=== PATIENT | female | born 1930 | race Hispanic/Latino ===

== ENCOUNTER 2017-01-14 12:38 | Emergency (ER) | payer MEDICARE, OTHER ==
[2017-01-14 13:30] VITALS: BP 184/71
[2017-01-14] MEDS ORDERED: TORADOL IM ONE (14:52)
--- NOTE | 2017-01-14 14:57 | Emergency Department Report ---
ED Neck Pain/Injury HPI - General Chief Complaint: Neck Pain/Injury Stated Complaint: NERVE PAIN/FACE/NECK AREA Time Seen by Provider: 01/14/17 14:40 Source: patient, family Mode of arrival: Stretcher Limitations: Other - History of Present Illness Initial Comments: Patient is a 86-year-old female here with complaint of right sided neck and facial pain. She has a known history of trigeminal neuralgia and feels that this is a flare of her try Demerol. She is having facial spasms and now neck spasms. She's had no traumatic injury. She says that she has had similar pain in the past. She takes Tegretol 300 mg twice a day. She will occasionally increased to 303 times a day when her neuralgia increases. She denies fevers chills nausea vomiting. -: Sudden Place: home Radiation: right shoulder Severity: moderate Quality: burning Improves With: none Worsens With: none - Related Data Home Medications Medication Instructions Recorded Confirmed Last Taken Atenolol [Tenormin] 25 mg PO DAILY 12/15/14 12/15/14 Unknown Baclofen 20 mg PO BID 12/15/14 12/15/14 Unknown Hydrochlorothiazide 12.5 mg PO DAILY 12/15/14 12/15/14 Unknown Levothyroxine [Synthroid] 12.5 mcg PO QAM 12/15/14 12/15/14 Unknown Memantine HCl [Namenda Xr] 28 mg PO DAILY 12/15/14 12/15/14 Unknown amLODIPine [Norvasc] 10 mg PO DAILY 12/15/14 12/15/14 Unknown carBAMazepine [TEGretol] 200 mg PO Q12HR 12/15/14 12/15/14 Unknown Previous Rx's Medication Instructions Recorded Last Taken Type Ibuprofen [Motrin 400 MG tab] 400 mg PO Q8H #9 tablet 01/14/17 Unknown Rx Allergies Allergy/AdvReac Type Severity Reaction Status Date / Time No Known Allergies Allergy Verified 01/14/17 13:58 ED Review of Systems ROS: Stated complaint: NERVE PAIN/FACE/NECK AREA Other details as noted in HPI Comment: All other systems reviewed and negative Constitutional: denies: chills, fever Eyes: denies: eye pain, eye discharge, vision change ENT: denies: ear pain, throat pain Respiratory: denies: cough, shortness of breath, wheezing Cardiovascular: denies: chest pain, palpitations Endocrine: no symptoms reported Gastrointestinal: denies: abdominal pain, nausea, diarrhea Genitourinary: denies: urgency, dysuria, discharge Musculoskeletal: denies: back pain, joint swelling, arthralgia Skin: denies: rash, lesions Neurological: denies: headache, weakness, paresthesias Psychiatric: denies: anxiety, depression Hematological/Lymphatic: denies: easy bleeding, easy bruising ED Past Medical Hx - Past Medical History Hx Hypertension: Yes Hx Congestive Heart Failure: No Hx Diabetes: No Hx Asthma: No Hx COPD: No Hx Dementia: Yes Additional medical history: high cholestrol/ trigeminal neuralgia - Surgical History Additional Surgical History: QUINN - Family History Family history: no significant - Social History Smoking Status: Never Smoker Substance Use Type: Alcohol - Medications Home Medications: Home Medications Medication Instructions Recorded Confirmed Last Taken Type Atenolol [Tenormin] 25 mg PO DAILY 12/15/14 12/15/14 Unknown History Baclofen 20 mg PO BID 12/15/14 12/15/14 Unknown History Hydrochlorothiazide 12.5 mg PO DAILY 12/15/14 12/15/14 Unknown History Levothyroxine [Synthroid] 12.5 mcg PO QAM 12/15/14 12/15/14 Unknown History Memantine HCl [Namenda Xr] 28 mg PO DAILY 12/15/14 12/15/14 Unknown History amLODIPine [Norvasc] 10 mg PO DAILY 12/15/14 12/15/14 Unknown History carBAMazepine [TEGretol] 200 mg PO Q12HR 12/15/14 12/15/14 Unknown History Ibuprofen [Motrin 400 MG tab] 400 mg PO Q8H #9 tablet 01/14/17 Unknown Rx ED Physical Exam - General Limitations: No Limitations, Other General appearance: alert, in no apparent distress - Head Head exam: Present: atraumatic, normocephalic - Eye Eye exam: Present: normal appearance, EOMI - ENT ENT exam: Present: normal exam, mucous membranes moist - Neck Neck exam: Present: normal inspection, tenderness, other (muscle spasm and right trapezius). Absent: lymphadenopathy - Respiratory Respiratory exam: Present: normal lung sounds bilaterally. Absent: respiratory distress - Cardiovascular Cardiovascular Exam: Present: regular rate, normal rhythm - Extremities Exam Extremities exam: Present: normal inspection, full ROM - Back Exam Back exam: Present: normal inspection, full ROM - Neurological Exam Neurological exam: Present: alert, altered, oriented X3, CN II-XII intact, motor sensory deficit - Psychiatric Psychiatric exam: Present: normal affect ED Course Vital Signs 01/14/17 13:26 Temperature 98.5 F Pulse Rate 61 Respiratory 18 Rate Blood Pressure 184/71 O2 Sat by Pulse 95 Oximetry ED Medical Decision Making - Medical Decision Making Patient with likely trigeminal neuralgia flare. She has some muscle spasm in her right trapezius. She appears well otherwise. She is afebrile and has no other complaints. She did not have any trauma to the neck and she has no midline tenderness. She has a normal neurological exam. My plan is to treat her with an NSAID for the muscle spasm in the neck and increase her Tegretol to 300 mg 3 times a day. I discussed adding a possible muscle relaxer but given the sedating effects of Tegretol the family and I agreed not to start a muscle relaxant at this point. We will put her on a very short course of NSAIDs and discharged. Portions of this chart were dictated with dictation software. There may be dictation errors contained within this note. Critical care attestation.: If time is entered above; I have spent that time in minutes in the direct care of this critically ill patient, excluding procedure time. ED Disposition Clinical Impression: Muscle spasm, Trigeminal neuralgia Disposition: DC-01 TO HOME OR SELFCARE Is pt being admited?: No Condition: Stable Instructions: Muscle Spasm (ED) Additional Instructions: Follow-up with your neurologist. Increase Tegretol to 300 mg 3 times a day Prescriptions: Ibuprofen [Motrin 400 MG tab] 400 mg PO Q8H #9 tablet Referrals: PRIMARY CARE, [Primary Care Provider] - 3-5 Days
== END 2017-01-14 15:40 | disposition home or self-care (01) ==
LOC: ED 12:38
DX: G50.0 Trigeminal neuralgia (principal); M62.838 Other muscle spasm; I10 Essential (primary) hypertension; E78.00 Pure hypercholesterolemia, unspecified; F03.90 Unspecified dementia, unspecified severity, without behavioral disturbance, psychotic disturbance, mood disturbance, and anxiety; Z87.440 Personal history of urinary (tract) infections
CPT/HCPCS: 96372; 99283; J1885

== ENCOUNTER 2017-08-28 19:15 | Inpatient (IN) | payer MEDICARE, OTHER ==
[2017-08-28 20:31] LABS: Basophils % (Auto) 0.3 % (0.0-1.8); Eosinophils # (Auto) 0.2 K/mm3 (0.0-0.4); Eosinophils % (Auto) 1.8 % (0.0-4.3); Hematocrit 36.3 % (30.3-42.9); Hemoglobin 12.3 gm/dl (10.1-14.3); Lymphocytes # (Auto) 1.3 K/mm3 (1.2-5.4); Lymphocytes % (Auto) 14.5 % (13.4-35.0); Mean Corpuscular HGB Conc 34 % (30-34); Mean Corpuscular Hemoglobin 30 pg (28-32); Mean Corpuscular Volume 89 fl (79-97); Monocytes # (Auto) 0.8 K/mm3 (0.0-0.8); Platelet Count 244 K/mm3 (140-440); Red Cell Distribution Width 14.1 % (13.2-15.2)
[2017-08-28 20:53] LABS: Calcium 8.6 mg/dL (8.4-10.2)
--- NOTE | 2017-08-28 20:57 | Emergency Department Report ---
HPI - General Chief Complaint: Syncope Time Seen by Provider: 08/28/17 20:37 - HPI HPI: Room 25 The patient is an 87-year-old female presented with a chief complaint of syncope. The patient has a history of dementia and family states 3 weeks ago the patient was started on Namenda. Family states the patient has been complaining of intermittent dizziness with standing for the past 3 weeks. 4 days ago the patient's Tegretol was increased by her neurologist secondary to worsening of her trigeminal neuralgia. This evening the patient's heard her in the bathroom and went to check on her and found her kneeling in front of the toilet bowl. The went to help patient up with the patient slumped over and fell to the ground and was unresponsive. EMS was called and the states the patient was eventually responsive in speaking with the paramedics. The patient does not recall being in the bathroom. When asked how she is feeling currently the patient states she feels a little "fuzzy." Patient denies pain of any type, shortness of breath or palpitations. Patient denies nausea or vomiting. Location: Mental state Duration: [See above] Quality: Unresponsive Severity: Moderate Modifying factors: [see above] Context: [see above] Mode of transportation: [not driving] ED Past Medical Hx - Past Medical History Previous Medical History?: Yes Hx Hypertension: Yes Hx Dementia: Yes Additional medical history: Trigeminal neuralgia, hypercholesterolemia - Surgical History Past Surgical History?: No - Family History Family history: no significant - Social History Smoking Status: Never Smoker Substance Use Type: None - Medications Home Medications: Home Medications Medication Instructions Recorded Confirmed Last Taken Type Atenolol [Tenormin] 25 mg PO DAILY 12/15/14 08/28/17 Unknown History Baclofen 20 mg PO BID 12/15/14 08/28/17 Unknown History Hydrochlorothiazide 12.5 mg PO DAILY 12/15/14 08/28/17 Unknown History Levothyroxine [Synthroid] 12.5 mcg PO QAM 12/15/14 08/28/17 Unknown History Memantine HCl [Namenda Xr] 28 mg PO DAILY 12/15/14 08/28/17 Unknown History amLODIPine [Norvasc] 10 mg PO DAILY 12/15/14 08/28/17 Unknown History carBAMazepine [TEGretol] 200 mg PO Q12HR 12/15/14 08/28/17 Unknown History Ibuprofen [Motrin 400 MG tab] 400 mg PO Q8H #9 tablet 01/14/17 08/28/17 Unknown Rx ED Review of Systems ROS: Stated complaint: SYNCOPE Other details as noted in HPI Constitutional: no symptoms reported Eyes: denies: eye pain ENT: denies: throat pain Respiratory: denies: shortness of breath Cardiovascular: denies: chest pain, palpitations Gastrointestinal: denies: abdominal pain Genitourinary: denies: dysuria Musculoskeletal: denies: back pain Neurological: other (syncope). denies: headache Physical Exam - Physical Exam Vital Signs: Vital Signs 08/28/17 19:22 Temperature 97.7 F Pulse Rate 60 Respiratory 16 Rate Blood Pressure 164/62 O2 Sat by Pulse 98 Oximetry Physical Exam: GENERAL: The patient is well-developed well-nourished female lying on stretcher not appearing to be in acute distress. [] HEENT: Normocephalic. Atraumatic. Extraocular motions are intact. Patient has moist mucous membranes. No nystagmus NECK: Supple. No meningitic signs are noted. There is no adenopathy noted. CHEST/LUNGS: Clear to auscultation. There is no respiratory distress noted. HEART/CARDIOVASCULAR: Regular. There is no tachycardia. There is no gallop rub or murmur. ABDOMEN: Abdomen is soft, nontender. Patient has normal bowel sounds. There is no abdominal distention. SKIN: There is no rash. There is no edema. There is no diaphoresis. NEURO: The patient is awake, alert, and oriented. The patient is cooperative. The patient has no focal neurologic deficits. The patient has normal speech. Cranial nerves II through XII grossly intact, no drift. Normal sensation throughout. Moves all extremities well. MUSCULOSKELETAL: There is no cervical axial tenderness. There is no evidence of acute injury. NIHSS= 0 LOC a. Alert= 0 Not alert but arousable to minor stimuli=1 Not alert requires repeated or strong stimuli to move= 2 Responds only reflex motor or unresponsive=3 b. asks month and age answers both correctly= 0 answers one correctly= 1 answers neither correctly= 2 Best Gaze normal= 0 abnormal in one or both but forced deviation or total paresis absent= 1 forced deviation or total gaze paresis= 2 Visual no visual loss= 0 partial hemianopia= 1 complete hemianopia= 2 bilateral hemianopia= 3 Facial Palsy normal= 0 minor paralysis= 1 partial paralysis= 2 complete paralysis= 3 Motor Arm no drift= 0 drift before 10 secs but doesnt hit bed= 1 some effort against gravity= 2 no effort against gravity= 3 no movement= 4 Motor leg no drift= 0 drift before 5 secs but doesnt hit bed= 1 drifts to bed before 5 secs= 2 no effort against gravity= 3 no movement= 4 Limb ataxia absent=0 present in one limb= 1 present in two limbs= 2 Sensory normal= 0 mild sensory loss= 1 severe (unaware of being touched)= 2 Best language mild/some loss of fluency= 1 severe= 2 mute= 3 Dysarthria normal= 0 slurs some words= 1 severe/unintelligible= 2 Extinction and Inattention no abnormality= 0 visual, tactile, auditory or personal inattention= 1 profound (doesnt recognize own hand or orients to only one side= 2 ED Course Vital Signs 08/28/17 19:22 Temperature 97.7 F Pulse Rate 60 Respiratory 16 Rate Blood Pressure 164/62 O2 Sat by Pulse 98 Oximetry ED Medical Decision Making - Lab Data Result diagrams: 08/28/17 20:16 08/28/17 20:16 Laboratory Tests 08/28/17 08/28/17 08/28/17 20:16 20:16 20:59 WBC 8.6 RBC 4.10 Hgb 12.3 Hct 36.3 MCV 89 MCH 30 MCHC 34 RDW 14.1 Plt Count 244 Lymph % (Auto) 14.5 [place] % (Auto) 9.0 H Eos % (Auto) 1.8 Baso % (Auto) 0.3 Lymph # 1.3 [place] # 0.8 Eos # 0.2 Baso # 0.0 Seg Neutrophils % 74.4 H Seg Neutrophils # 6.4 Sodium 140 Potassium 4.0 Chloride 100.6 Carbon Dioxide 21 L Anion Gap 22 BUN 22 H Creatinine 1.6 H Estimated GFR 30 BUN/Creatinine Ratio 14 Glucose 146 H Calcium 8.6 Total Bilirubin 0.20 AST 19 ALT 12 Alkaline Phosphatase 109 Total Creatine Kinase 101 CK-MB (CK-2) 2.4 CK-MB (CK-2) Rel Index 2.3 Troponin T 0.012 Total Protein 6.6 Albumin 4.0 Albumin/Globulin Ratio 1.5 Carbamazepine 03/09/18 20:59 WBC RBC Hgb Hct MCV MCH MCHC RDW Plt Count Lymph % (Auto) [place] % (Auto) Eos % (Auto) Baso % (Auto) Lymph # [place] # Eos # Baso # Seg Neutrophils % Seg Neutrophils # Sodium Potassium Chloride Carbon Dioxide Anion Gap BUN Creatinine Estimated GFR BUN/Creatinine Ratio Glucose Calcium Total Bilirubin AST ALT Alkaline Phosphatase Total Creatine Kinase CK-MB (CK-2) CK-MB (CK-2) Rel Index Troponin T Total Protein Albumin Albumin/Globulin Ratio Carbamazepine 12.9 H - EKG Data -: EKG Interpreted by Me EKG shows normal: sinus rhythm Rate: normal - EKG Data When compared to previous EKG there are: previous EKG unavailable Interpretation: nonspecific ST-T wave susan (flat andT wave in aVL. Biphasic T- wave in V2) - Radiology Data Radiology results: report reviewed (CT head) FINAL REPORT EXAM: CT HEAD/BRAIN WO CON HISTORY: syncope TECHNIQUE: CT head without contrast PRIORS: None. FINDINGS: No acute intra-axial or extra-axial hemorrhage is identified. There is no evidence of midline shift or mass effect. There is generalized prominence of ventricles and sulci consistent with generalized atrophy. Hassan-white matter differentiation is intact. No acute parenchymal abnormalities seen. There are patchy and confluent hypodensities within the supratentorial white matter. Bony calvarium is grossly intact. There is mucosal thickening within the sphenoid sinus IMPRESSION: Chronic small vessel white matter ischemic change generalized atrophy Evidence for chronic sinusitis Transcribed By: MUSHTAQ Dictated By: NHUNG HUDSON MD Electronically Authenticated By: NHUNG HUDSON MD Signed Date/Time: 08/28/172135 DD/ 35 TD/TT: 08/28/172135 - Differential Diagnosis syncope, dysrhythmia, ICH, vasovagal syncope Critical care attestation.: If time is entered above; I have spent that time in minutes in the direct care of this critically ill patient, excluding procedure time. ED Disposition Clinical Impression: Syncope, Acute renal insufficiency Disposition: OP ADMIT IP TO THIS HOSP Is pt being admited?: Yes Does the pt Need Aspirin: No Condition: Fair Instructions: Syncope (ED) Referrals: SELENA HARPER MD [Primary Care Provider] - 3-5 Days Time of Disposition: 22:03 (hospitalist paged (Dr. Madrigal))
[2017-08-28 21:34] LABS: Creatine Kinase MB 2.4 ng/mL (0.0-4.0)
--- NOTE | 2017-08-28 21:40 | Cat Scan Report ---
FINAL REPORT EXAM: CT HEAD/BRAIN WO CON HISTORY: syncope TECHNIQUE: CT head without contrast PRIORS: None. FINDINGS: No acute intra-axial or extra-axial hemorrhage is identified. There is no evidence of midline shift or mass effect. There is generalized prominence of ventricles and sulci consistent with generalized atrophy. Hassan-white matter differentiation is intact. No acute parenchymal abnormalities seen. There are patchy and confluent hypodensities within the supratentorial white matter. Bony calvarium is grossly intact. There is mucosal thickening within the sphenoid sinus IMPRESSION: Chronic small vessel white matter ischemic change generalized atrophy Evidence for chronic sinusitis
--- NOTE | 2017-08-28 23:16 | History and Physical Report ---
History of Present Illness Date of examination: 08/28/17 Date of admission: 08/28/17 22:13 Chief complaint: Passed out History of present illness: I have seen and evaluated the patient. When asked the patient "why you are here ?" Patient said she is feeling perfectly fine and to know why she presented to the hospital. Family member was not in the room. Patient has severe dementia. History is obtained from ED doctor. The patient is an 87-year-old female presented with a chief complaint of syncope. The patient has a history of dementia and family states 3 weeks ago the patient was started on Namenda. Family states the patient has been complaining of intermittent dizziness with standing for the past 3 weeks. 4 days ago the patient's Tegretol was increased by her neurologist secondary to worsening of her trigeminal neuralgia. This evening the patient's heard her in the bathroom and went to check on her and found her kneeling in front of the toilet bowl. The went to help patient up with the patient slumped over and fell to the ground and was unresponsive. EMS was called and the states the patient was eventually responsive in speaking with the paramedics. The patient does not recall being in the bathroom. When asked how she is feeling currently the patient states she feels a little "fuzzy." Patient denies pain of any type, shortness of breath or palpitations. Patient denies nausea or vomiting. Review of system couldn't be obtained because of severe dementia. Past History Past Medical History: hypertension, other (Dmentia) Past Surgical History: No surgical history Social history: full code. denies: smoking, alcohol abuse, prescription drug abuse, IV drug use Family history: no significant family history Medications and Allergies Allergies Allergy/AdvReac Type Severity Reaction Status Date / Time No Known Allergies Allergy Verified 01/14/17 13:58 Home Medications Medication Instructions Recorded Confirmed Last Taken Type Atenolol [Tenormin] 25 mg PO DAILY 12/15/14 08/28/17 Unknown History Baclofen 20 mg PO BID 12/15/14 08/28/17 Unknown History Hydrochlorothiazide 12.5 mg PO DAILY 12/15/14 08/28/17 Unknown History Levothyroxine [Synthroid] 12.5 mcg PO QAM 12/15/14 08/28/17 Unknown History Memantine HCl [Namenda Xr] 28 mg PO DAILY 12/15/14 08/28/17 Unknown History amLODIPine [Norvasc] 10 mg PO DAILY 12/15/14 08/28/17 Unknown History carBAMazepine [TEGretol] 200 mg PO Q12HR 12/15/14 08/28/17 Unknown History Ibuprofen [Motrin 400 MG tab] 400 mg PO Q8H #9 tablet 01/14/17 08/28/17 Unknown Rx Review of Systems ROS unobtainable: due to mental status (Patient has severe dementia, no family member in the room) Exam - Physical Exam Narrative exam: Not in cardiopulmonary distress. The patient appeared well nourished and normally developed. Vital signs as documented. Head exam is unremarkable. No scleral icterus . Neck is without jugular venous distension, thyromegaly, or carotid bruits. Lungs are clear to auscultation. Cardiac exam reveals regular rate and Rhythm. First and second heart sounds normal. No murmurs, rubs or gallops. Abdominal exam reveals normal bowel sounds, no masses, no organomegaly and no aortic enlargement. Extremities are nonedematous and both femoral and pedal pulses are normal. 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 - Constitutional Vitals: Temp Pulse Resp BP Pulse Ox 97.6 F 66 20 176/45 94 08/28/17 23:02 08/28/17 23:15 08/28/17 23:02 08/28/17 23:02 08/28/17 23:02 Results - Labs CBC & Chem 7: 08/28/17 20:16 08/28/17 20:16 Labs: Laboratory Last Values WBC 8.6 K/mm3 (4.5-11.0) 08/28/17 20:16 RBC 4.10 M/mm3 (3.65-5.03) 08/28/17 20:16 Hgb 12.3 gm/dl (10.1-14.3) 08/28/17 20:16 Hct 36.3 % (30.3-42.9) 08/28/17 20:16 MCV 89 fl (79-97) 08/28/17 20:16 MCH 30 pg (28-32) 08/28/17 20:16 MCHC 34 % (30-34) 08/28/17 20:16 RDW 14.1 % (13.2-15.2) 08/28/17 20:16 Plt Count 244 K/mm3 (140-440) 08/28/17 20:16 Lymph % (Auto) 14.5 % (13.4-35.0) 08/28/17 20:16 Cache % (Auto) 9.0 % (0.0-7.3) H 08/28/17 20:16 Eos % (Auto) 1.8 % (0.0-4.3) 08/28/17 20:16 Baso % (Auto) 0.3 % (0.0-1.8) 08/28/17 20:16 Lymph # 1.3 K/mm3 (1.2-5.4) 08/28/17 20:16 Cache # 0.8 K/mm3 (0.0-0.8) 08/28/17 20:16 Eos # 0.2 K/mm3 (0.0-0.4) 08/28/17 20:16 Baso # 0.0 K/mm3 (0.0-0.1) 08/28/17 20:16 Seg Neutrophils % 74.4 % (40.0-70.0) H 08/28/17 20:16 Seg Neutrophils # 6.4 K/mm3 (1.8-7.7) 08/28/17 20:16 Sodium 140 mmol/L (137-145) 08/28/17 20:16 Potassium 4.0 mmol/L (3.6-5.0) 08/28/17 20:16 Chloride 100.6 mmol/L (98-107) 08/28/17 20:16 Carbon Dioxide 21 mmol/L (22-30) L 08/28/17 20:16 Anion Gap 22 mmol/L 08/28/17 20:16 BUN 22 mg/dL (7-17) H 08/28/17 20:16 Creatinine 1.6 mg/dL (0.7-1.2) H 08/28/17 20:16 Estimated GFR 30 ml/min 08/28/17 20:16 BUN/Creatinine Ratio 14 % 08/28/17 20:16 Glucose 146 mg/dL (65-100) H 08/28/17 20:16 Calcium 8.6 mg/dL (8.4-10.2) 08/28/17 20:16 Total Bilirubin 0.20 mg/dL (0.1-1.2) 08/28/17 20:16 AST 19 units/L (5-40) 08/28/17 20:16 ALT 12 units/L (7-56) 08/28/17 20:16 Alkaline Phosphatase 109 units/L (35-129) 08/28/17 20:16 Total Creatine Kinase 101 units/L (30-135) 08/28/17 20:59 CK-MB (CK-2) 2.4 ng/mL (0.0-4.0) 08/28/17 20:59 CK-MB (CK-2) Rel Index 2.3 (0-4) 08/28/17 20:59 Troponin T 0.012 ng/mL (0.00-0.029) 08/28/17 20:59 Total Protein 6.6 g/dL (6.3-8.2) 08/28/17 20:16 Albumin 4.0 g/dL (3.9-5) 08/28/17 20:16 Albumin/Globulin Ratio 1.5 % 08/28/17 20:16 Carbamazepine 12.9 ug/mL (4-12) H 08/28/17 20:59 Assessment and Plan Assessment and plan: Syncope/ Autonomic dysfunction/ Brief loss of consciousness - Stroke work up, neurology consult - Headed dementia and trigeminal neuralgia medications Dementia - Supportive care Trigeminal neuralgia - Currently have any pain Hypertension - Continue home medications Acute renal failure - We'll give her IV fluids DVT prophylaxis Disposition - Admit to telemetry floor. Advance Directives: Yes VTE prophylaxis?: Chemical Plan of care discussed with patient/family: Yes
[2017-08-28] MEDS ORDERED: TYLENOL PO PRN (23:17)
[2017-08-28] MEDS ORDERED: SODIUM CHLORIDE FLUSH SYRINGE 10 ML IV PRN (23:17)
[2017-08-28] MEDS ORDERED: PHENERGAN PR PRN (23:17)
[2017-08-28] MEDS ORDERED: REGLAN PO PRN (23:17)
[2017-08-28] MEDS ORDERED: ZOFRAN IV PRN (23:17)
[2017-08-28] MEDS ORDERED: MILK OF MAGNESIA PO PRN (23:17)
[2017-08-29 02:41] LABS: Bilirubin,Urine NEG (Negative); Blood,Urine NEG (Negative); Color,Urine Straw (Yellow); Urobilinogen,Urine < 2.0 mg/dL (<2.0); WBC,Urine < 1.0 /HPF (0.0-6.0)
[2017-08-29] MEDS: NACL 0.9% 1000 ML 1,000 ML IV SCH ×2 (03:58→21:28)
[2017-08-29] MEDS: SYNTHROID PO SCH (05:08)
[2017-08-29 06:54] LABS: Chol/HDL Ratio 3.16 %
--- NOTE | 2017-08-29 09:03 | Progress Note ---
Assessment and Plan Assessment and plan: 87-year-old female presented with a chief complaint of syncope. She takes Tegretol for trigeminal neuralgia, the dose was recently increased. She has dementia has a recollection of what happened. She was found by her slumped over and unresponsive in the bathroom. The patient has no complaints of her own Syncope/ Autonomic dysfunction/ Brief loss of consciousness - Stroke work up, neurology consult carbamezapine toxicity -currently on hold, will be dc on a lower dose Dementia - Supportive care Trigeminal neuralgia - Currently asymptomatic Hypertensive urgency - hold diuretics, optimize meds Acute renal failure/vasmotor nephropathy - continue IVF, diuretics on hold DVT prophylaxis Disposition - Admit to telemetry floor. History Interval history: Review of systems Constitutional: No fevers, no malaise, no joint pains CVS: No chest pain, no orthopnea, no dyspnea on exertion, no pedal edema GI: No abdominal pain, no diarrhea, no vomiting, no constipation Respiratory: No shortness of breath, no wheezing, no coughing Hospitalist Physical - Physical exam Narrative exam: General.: Appears well, no distress, nontoxic HEENT: Moist mucous membranes, extraocular muscles intact, no lymphadenopathy Neck: supple Cardiac: S1-S2 heard Lungs: clear to auscultation bilaterally Abdomen: soft , nontender, nondistended, bowel sounds positive Extremities: no edema clubbing or cyanosis Skin: no rash or lesions Neurologic: no gross focal deficits, pleasantly demented Psych: Cooperative, pleasantly demented - Constitutional Vitals: Temp Pulse Resp BP Pulse Ox 98.2 F 62 20 153/52 95 08/29/17 04:17 08/29/17 08:59 08/29/17 04:12 08/29/17 04:12 08/29/17 04:12 Results - Labs CBC & Chem 7: 08/28/17 20:16 08/28/17 20:16 Labs: Laboratory Last Values WBC 8.6 K/mm3 (4.5-11.0) 08/28/17 20:16 RBC 4.10 M/mm3 (3.65-5.03) 08/28/17 20:16 Hgb 12.3 gm/dl (10.1-14.3) 08/28/17 20:16 Hct 36.3 % (30.3-42.9) 08/28/17 20:16 MCV 89 fl (79-97) 08/28/17 20:16 MCH 30 pg (28-32) 08/28/17 20:16 MCHC 34 % (30-34) 08/28/17 20:16 RDW 14.1 % (13.2-15.2) 08/28/17 20:16 Plt Count 244 K/mm3 (140-440) 08/28/17 20:16 Lymph % (Auto) 14.5 % (13.4-35.0) 08/28/17 20:16 Elbert % (Auto) 9.0 % (0.0-7.3) H 08/28/17 20:16 Eos % (Auto) 1.8 % (0.0-4.3) 08/28/17 20:16 Baso % (Auto) 0.3 % (0.0-1.8) 08/28/17 20:16 Lymph # 1.3 K/mm3 (1.2-5.4) 08/28/17 20:16 Elbert # 0.8 K/mm3 (0.0-0.8) 08/28/17 20:16 Eos # 0.2 K/mm3 (0.0-0.4) 08/28/17 20:16 Baso # 0.0 K/mm3 (0.0-0.1) 08/28/17 20:16 Seg Neutrophils % 74.4 % (40.0-70.0) H 08/28/17 20:16 Seg Neutrophils # 6.4 K/mm3 (1.8-7.7) 08/28/17 20:16 Sodium 140 mmol/L (137-145) 08/28/17 20:16 Potassium 4.0 mmol/L (3.6-5.0) 08/28/17 20:16 Chloride 100.6 mmol/L (98-107) 08/28/17 20:16 Carbon Dioxide 21 mmol/L (22-30) L 08/28/17 20:16 Anion Gap 22 mmol/L 08/28/17 20:16 BUN 22 mg/dL (7-17) H 08/28/17 20:16 Creatinine 1.6 mg/dL (0.7-1.2) H 08/28/17 20:16 Estimated GFR 30 ml/min 08/28/17 20:16 BUN/Creatinine Ratio 14 % 08/28/17 20:16 Glucose 146 mg/dL (65-100) H 08/28/17 20:16 Calcium 8.6 mg/dL (8.4-10.2) 08/28/17 20:16 Total Bilirubin 0.20 mg/dL (0.1-1.2) 08/28/17 20:16 AST 19 units/L (5-40) 08/28/17 20:16 ALT 12 units/L (7-56) 08/28/17 20:16 Alkaline Phosphatase 109 units/L (35-129) 08/28/17 20:16 Total Creatine Kinase 101 units/L (30-135) 08/28/17 20:59 CK-MB (CK-2) 2.4 ng/mL (0.0-4.0) 08/28/17 20:59 CK-MB (CK-2) Rel Index 2.3 (0-4) 08/28/17 20:59 Troponin T 0.012 ng/mL (0.00-0.029) 08/28/17 20:59 Total Protein 6.6 g/dL (6.3-8.2) 08/28/17 20:16 Albumin 4.0 g/dL (3.9-5) 08/28/17 20:16 Albumin/Globulin Ratio 1.5 % 08/28/17 20:16 Triglycerides 120 mg/dL (2-149) 08/29/17 05:58 Cholesterol 158 mg/dL (50-199) 08/29/17 05:58 LDL Cholesterol Direct 91 mg/dL (50-130) 08/29/17 05:58 HDL Cholesterol 50 mg/dL (40-59) 08/29/17 05:58 Cholesterol/HDL Ratio 3.16 % 08/29/17 05:58 Urine Color Straw (Yellow) 08/29/17 02:27 Urine Turbidity Clear (Clear) 08/29/17 02:27 Urine pH 6.0 (5.0-7.0) 08/29/17 02:27 Ur Specific [place] 1.008 (1.003-1.030) 08/29/17 02:27 Urine Protein 30 mg/dl mg/dL (Negative) 08/29/17 02:27 Urine Glucose (UA) Neg mg/dL (Negative) 08/29/17 02:27 Urine Ketones Neg mg/dL (Negative) 08/29/17 02:27 Urine Blood Neg (Negative) 08/29/17 02:27 Urine Nitrite Neg (Negative) 08/29/17 02:27 Urine Bilirubin Neg (Negative) 08/29/17 02:27 Urine Urobilinogen < 2.0 mg/dL (<2.0) 08/29/17 02:27 Ur Leukocyte Esterase Neg (Negative) 08/29/17 02:27 Urine WBC (Auto) < 1.0 /HPF (0.0-6.0) 08/29/17 02:27 Urine RBC (Auto) 1.0 /HPF (0.0-6.0) 08/29/17 02:27 U Epithel Cells (Auto) < 1.0 /HPF (0-13.0) 08/29/17 02:27 Carbamazepine 12.9 ug/mL (4-12) H 08/28/17 20:59
--- NOTE | 2017-08-29 09:58 | Magnetic Resonance Report ---
MRI OF THE BRAIN WITHOUT CONTRAST: HISTORY: Stroke PROCEDURE: Multiplanar, multisequence MR imaging of the brain without IV contrast was performed. FINDINGS: Compared to the CT head performed 08/28/17. Advanced diffuse volume loss and mild chronic periventricular white matter changes are identified. These findings are likely appropriate for this persons age. Otherwise, the brain parenchyma demonstrates normal signal on all sequences. No evidence for acute ischemia, hemorrhage or mass. No chronic infarct or extra-axial fluid collection. The midline structures are central. The basal cisterns are patent. Normal ventricular size. The orbital cavities and sella turcica demonstrate no abnormality. The visualized paranasal sinuses and mastoid air cells are well aerated. IMPRESSION: Advanced volume loss and mild chronic white matter changes. No acute intracranial process appreciated.
[2017-08-29] MEDS ORDERED: SYNTHROID PO SCH (10:00)
[2017-08-29] MEDS ORDERED: DULCOLAX PR PRN (10:00)
[2017-08-29] MEDS ORDERED: TENORMIN PO SCH (10:00)
[2017-08-29] MEDS ORDERED: NORVASC PO SCH (10:00)
[2017-08-29] MEDS ORDERED: APRESOLINE IV PRN (10:30)
[2017-08-29] MEDS: PROCARDIA XL PO SCH (13:32)
[2017-08-29] MEDS: COLACE PO SCH ×2 (13:32→21:28)
[2017-08-29] MEDS: ASPIRIN PO SCH (13:32)
[2017-08-29] MEDS: HEPARIN SUB-Q SCH ×2 (13:33→21:28)
--- NOTE | 2017-08-29 14:33 | Consultation ---
History of Present Illness Consult date: 08/29/17 History of present illness: see my dictyated note OK to restart tegretol do not recommend more namenda she has positive history of small stroke s seen on MRI Past History Past Medical History: hypertension, other (Dmentia) Past Surgical History: No surgical history Social history: full code. denies: smoking, alcohol abuse, prescription drug abuse, IV drug use Family history: no significant family history Medications and Allergies Allergies Allergy/AdvReac Type Severity Reaction Status Date / Time No Known Allergies Allergy Verified 01/14/17 13:58 Home Medications Medication Instructions Recorded Confirmed Last Taken Type Atenolol [Tenormin] 25 mg PO DAILY 12/15/14 08/28/17 Unknown History Baclofen 20 mg PO BID 12/15/14 08/28/17 Unknown History Hydrochlorothiazide 12.5 mg PO DAILY 12/15/14 08/28/17 Unknown History Levothyroxine [Synthroid] 12.5 mcg PO QAM 12/15/14 08/28/17 Unknown History Memantine HCl [Namenda Xr] 28 mg PO DAILY 12/15/14 08/28/17 Unknown History amLODIPine [Norvasc] 10 mg PO DAILY 12/15/14 08/28/17 Unknown History carBAMazepine [TEGretol] 200 mg PO Q12HR 12/15/14 08/28/17 Unknown History Ibuprofen [Motrin 400 MG tab] 400 mg PO Q8H #9 tablet 01/14/17 08/28/17 Unknown Rx Active Meds: Active Medications Acetaminophen (Tylenol) 650 mg PO Q4H PRN PRN Reason: Pain, Mild (1-3) Aspirin (Aspirin) 325 mg PO QDAY [facility] Last Admin: 08/29/17 13:32 Dose: 325 mg Bisacodyl (Dulcolax) 10 mg ID QDAY PRN PRN Reason: Constipation Docusate Sodium (Colace) 100 mg PO BID [facility] Last Admin: 08/29/17 13:32 Dose: 100 mg Heparin Sodium (Porcine) (Heparin) 5,000 unit SUB-Q Q12HR [facility] Last Admin: 08/29/17 13:33 Dose: 5,000 unit Hydralazine HCl (Apresoline) 10 mg IV Q4H PRN PRN Reason: BP >160/100 Sodium Chloride (Nacl 0.9% 1000 Ml) 1,000 mls @ 100 mls/hr IV DIRECT [facility] Last Admin: 08/29/17 03:58 Dose: 100 mls/hr Levothyroxine Sodium (Synthroid) 12.5 mcg PO DAILY@0600 [facility] Last Admin: 08/29/17 05:08 Dose: 12.5 mcg Magnesium Hydroxide (Milk Of Magnesia) 30 ml PO Q4H PRN PRN Reason: Constipation Nifedipine (Procardia Xl) 60 mg PO QDAY [facility] Last Admin: 08/29/17 13:32 Dose: 60 mg Ondansetron HCl (Zofran) 4 mg IV Q8H PRN PRN Reason: N/V unrelieved by Reglan Promethazine HCl (Phenergan) 25 mg ID Q6H PRN PRN Reason: Nausea And Vomiting Sodium Chloride (Sodium Chloride Flush Syringe 10 Ml) 10 ml IV PRN PRN PRN Reason: LINE FLUSH Physical Examination - Vital Signs Vital Signs: Vital Signs Temp Pulse Resp BP Pulse Ox 97.7 F 60 16 164/62 98 08/28/17 19:22 08/28/17 19:22 08/28/17 19:22 08/28/17 19:22 08/28/17 19:22 Results - Laboratory Findings CBC and BMP: 08/28/17 20:16 08/28/17 20:16 Abnormal Lab Findings: Abnormal Labs 08/28/17 08/28/17 08/28/17 20:16 20:16 20:59 [place] % (Auto) 9.0 H Seg Neutrophils % 74.4 H Carbon Dioxide 21 L BUN 22 H Creatinine 1.6 H Glucose 146 H Carbamazepine 12.9 H
[2017-08-29 14:51] LABS: Calcium 8.5 mg/dL (8.4-10.2)
--- NOTE | 2017-08-29 23:47 | Consultation ---
HISTORY OF PRESENT ILLNESS: This is an 87-year-old female that presents to [facility] because of a presyncopal episode. I remember her from last week. Her was hospitalized at that point for syncopal episode. She comes at this point because of complications, likely arising from the interaction of the Tegretol and Namenda. She had been put on Namenda at 20 mg a day and was not tolerating it very well. It made her nauseated, very ataxic and felt off balance. Subsequently, she also had a Tegretol level 12.6. She had previously had very severe trigeminal neuralgia. ____ had increased her dose of Tegretol to 200 mg 3 times a day and she was tolerating it well initially up until the time the Namenda started, then she became much worse. I have reviewed her MRI scan of the brain. It shows areas of white matter disease suggestive of TIA, small vessel disease. She has symmetrical toddler nanny. Normal speech. She is confused. Memory is poor. Cranial nerves are otherwise entirely intact. No focal motor weakness is otherwise noted. IMPRESSION: Likely combination of issues, transient ischemic attacks, small vessel disease, mini strokes are likely, as well as trigeminal neuralgia and suspect a combination of issues. Largely the high dose of Namenda is contributing to her nausea, lethargy and being very off balance. I recommend restarting the Tegretol. She probably cannot tolerate it pretty well and she did have extremely severe facial pain the prior week and this will have to be addressed. JOB# [id number] DARLEEN/NTS
[2017-08-30] MEDS: SYNTHROID PO SCH (05:53)
[2017-08-30 08:28] VITALS: BP 195/75
[2017-08-30] MEDS: ASPIRIN PO SCH (08:59)
[2017-08-30] MEDS: PROCARDIA XL PO SCH (08:59)
[2017-08-30] MEDS: COLACE PO SCH (08:59)
[2017-08-30] MEDS: HEPARIN SUB-Q SCH (09:02)
--- NOTE | 2017-08-30 11:11 | Discharge Summary ---
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 Therapy Evaluate and Treat [CONS] Routine Comment: Reason For Exam: Neuro deficits Physical Therapy Evaluation and Treat [CONS] Routine Comment: Reason For Exam: Neuro deficits 08/28/17 23:19 Speech Therapy Evaluation and Treat [CONS] Routine Reason For Exam: swallow eval Primary care physician: SELENA HARPER Hospitalization Condition: Fair Exam - Constitutional Vitals: Temp Pulse Resp BP Pulse Ox 97.7 F 65 20 195/75 89 08/30/17 04:06 08/30/17 08:37 08/30/17 04:06 08/30/17 08:24 08/30/17 04:06 Plan Follow up with: SELENA HARPER MD [Primary Care Provider] - 3-5 Days Prescriptions: Aspirin EC [Aspirin Enteric Coated TAB] 81 mg PO QDAY #30 tablet. carBAMazepine XR [TEGretol XR] 200 mg PO Q12H #60 tab NIFEdipine XL [Procardia Xl] 60 mg PO QDAY #30 tablet
== END 2017-08-30 13:42 | disposition home or self-care (01) | DRG 73 ==
LOC: ED 19:15 → 4A 22:13
PROVIDERS: ADMIT Internal Medicine; ATTEND Internal Medicine
DX: G90.8 Other disorders of autonomic nervous system (principal); N17.0 Acute kidney failure with tubular necrosis; R55 Syncope and collapse; F03.90 Unspecified dementia, unspecified severity, without behavioral disturbance, psychotic disturbance, mood disturbance, and anxiety; I10 Essential (primary) hypertension; G50.0 Trigeminal neuralgia; T42.1X5A Adverse effect of iminostilbenes, initial encounter; I16.0 Hypertensive urgency; Z79.899 Other long term (current) drug therapy; Y92.89 Other specified places as the place of occurrence of the external cause
CPT/HCPCS: 36415; 70450; 70551; 80048; 80053; 80061; 80156; 81001; 82550; 82553; 84436; 84439; 84443; 84484; 85025; 93005; 93010; 93306; 93880; G8996-GN; G8997-GN; G8998-GN; J0360; J1644; J7030

== ENCOUNTER 2017-08-31 16:15 | Emergency (ER) | payer MEDICARE, OTHER ==
[2017-08-31] MEDS ORDERED: ASPIRIN PO ONE (16:39)
[2017-08-31 17:11] LABS: Basophils % (Auto) 0.4 % (0.0-1.8); Eosinophils # (Auto) 0.3 K/mm3 (0.0-0.4); Hematocrit 37.1 % (30.3-42.9); Hemoglobin 12.6 gm/dl (10.1-14.3); Lymphocytes # (Auto) 1.7 K/mm3 (1.2-5.4); Lymphocytes % (Auto) 20.4 % (13.4-35.0); Mean Corpuscular HGB Conc 34 % (30-34); Mean Corpuscular Hemoglobin 30 pg (28-32); Mean Corpuscular Volume 89 fl (79-97); Monocytes # (Auto) 0.8 K/mm3 (0.0-0.8); Monocytes % (Auto) 9.2 % (0.0-7.3); Platelet Count 253 K/mm3 (140-440); Red Blood Count 4.18 M/mm3 (3.65-5.03); Red Cell Distribution Width 13.8 % (13.2-15.2)
[2017-08-31 17:21] LABS: BUN/Creatinine Ratio 15; Blood Urea Nitrogen 23 mg/dL (7-17); Calcium 8.8 mg/dL (8.4-10.2); Hemolysis Index 3
[2017-08-31] MEDS ORDERED: NACL 0.9% 250ML 250 ML IV ONE (18:27)
[2017-08-31] MEDS ORDERED: SUBLIMAZE IV ONE ×2 (18:27→19:00)
--- NOTE | 2017-08-31 18:28 | Emergency Department Report ---
ED Chest Pain HPI - General Chief Complaint: Chest Pain Stated Complaint: CHEST PAIN Time Seen by Provider: 08/31/17 18:10 Source: patient, family, RN notes reviewed, old records reviewed Mode of arrival: Ambulatory Limitations: Other (patient has severe dementia. The patient is a poor historian) - History of Present Illness Initial Comments: This is an 87-year-old female. The patient is previously known to this provider. She is accompanied by her and her daughter. The patient's daughter is a nurse. The patient's daughter indicates the patient has a past medical history of severe hypertension, renal insufficiency, severe dementia. Her psychological assistant is Dr. PILI Alvarez. Patient presents to the ER with a complaint of left-sided chest wall pain. The patient cannot describe exacerbating or relieving factors, radiation, or qualitative nature of the pain. As per the patient's daughter, patient has not been lethargic or irritable, has been no shortness of breath, vomiting, diaphoresis, or diarrhea. Patient recently admitted to this hospital for evaluation of Syncope, had an echocardiogram which demonstrated an ejection fraction 55-60%, had an MRI of the brain was temperature to chronic findings with no new findings , had a carotid duplex was temperature to the following findings: YING DOUGHERTY [facility] : 1930 [id number] 08/29/17 11:37 - Radiology Dept. Note by REYMUNDO PACE [facility] Num: [id number] : 1930 Patient Age: 87 VASCULAR LAB.PRELIMINARY REPORT.CAROTID DUPLEX DONE.BOTH ICA'S HAVE <50% STENOSIS BY DOPPLER VELOCITIES.RT.ECA HAS 80-99% STENOSIS BY DOPPLER VELOCITIES ( PSV/EDV= 514/0 ). ANTEGRADE VERTEBRAL ARTERY FLOW BILATERALLY.PAUL( RN) INFORMED AT 1136. Patient was discharged. She was seen by consulting neurology, who recommended discontinuation of patient's jarad BRYANT Complaint: chest pain -: Gradual Onset: during rest Pain Location: left chest Aspirin use within the Past 7 Days: (1) Yes - Related Data On Oral Contraceptives: No Home Medications Medication Instructions Recorded Confirmed Last Taken Levothyroxine [Synthroid] 12.5 mcg PO QPM 12/15/14 08/31/17 Unknown Aspirin EC [Aspirin Enteric Coated 81 mg PO DAILY 08/31/17 08/31/17 08/31/17 TAB] Atenolol [Tenormin] 25 mg PO DAILY 08/31/17 08/31/17 08/31/17 Atorvastatin Calcium [Lipitor] 80 mg PO DAILY 08/31/17 08/31/17 Unknown Donepezil [Aricept] 10 mg PO DAILY 08/31/17 08/31/17 Unknown Ezetimibe [Zetia] 10 mg PO DAILY 08/31/17 08/31/17 Unknown Hydralazine HCl 25 mg PO BID 08/31/17 08/31/17 08/31/17 NIFEdipine XL [Procardia Xl] 60 mg PO DAILY 08/31/17 08/31/17 08/31/17 Previous Rx's Medication Instructions Recorded Last Taken Type carBAMazepine XR [TEGretol XR] 200 mg PO Q12H #60 tab 08/30/17 08/31/17 Rx Allergies Allergy/AdvReac Type Severity Reaction Status Date / Time No Known Allergies Allergy Verified 01/14/17 13:58 Heart Score - HEART Score History: Slightly suspicious EKG: Non-specific Age: > 65 Risk factors: 1-2 risk factors Troponin: < normal limit HEART Score: 4 - Critical Actions Critical Actions: 4-6 pts:12-16.6% risk of adverse cardiac event. Should be admitted ED Review of Systems ROS: Stated complaint: CHEST PAIN Other details as noted in HPI Comment: ros as per daughter ED Past Medical Hx - Past Medical History Previous Medical History?: Yes Hx Hypertension: Yes Hx Congestive Heart Failure: No Hx Diabetes: No Hx Asthma: No Hx COPD: No Hx Dementia: Yes Additional medical history: Trigeminal neuralgia, hypercholesterolemia - Surgical History Past Surgical History?: Yes Additional Surgical History: QUINN - Social History Smoking Status: Never Smoker - Medications Home Medications: Home Medications Medication Instructions Recorded Confirmed Last Taken Type Levothyroxine [Synthroid] 12.5 mcg PO QPM 12/15/14 08/31/17 Unknown History carBAMazepine XR [TEGretol XR] 200 mg PO Q12H #60 tab 08/30/17 08/31/17 Rx Aspirin EC [Aspirin Enteric Coated 81 mg PO DAILY 08/31/17 08/31/17 08/31/17 History TAB] Atenolol [Tenormin] 25 mg PO DAILY 03/06/0808/31/17 08/31/17 History Atorvastatin Calcium [Lipitor] 80 mg PO DAILY 08/31/17 08/31/17 Unknown History Donepezil [Aricept] 10 mg PO DAILY 08/31/17 08/31/17 Unknown History Ezetimibe [Zetia] 10 mg PO DAILY 08/31/17 08/31/17 Unknown History Hydralazine HCl 25 mg PO BID 08/31/17 08/31/17 08/31/17 History NIFEdipine XL [Procardia Xl] 60 mg PO DAILY 08/31/17 08/31/17 08/31/17 History ED Physical Exam - General General appearance: alert, in no apparent distress - Head Head exam: Present: atraumatic, normocephalic - Eye Eye exam: Present: normal appearance - ENT ENT exam: Present: normal exam, normal orophraynx, mucous membranes moist, normal external ear exam - Neck Neck exam: Present: normal inspection, full ROM - Respiratory Respiratory exam: Present: normal lung sounds bilaterally, chest wall tenderness (there is reproducible left-sided chest wall tenderness. The breast exam is within normal limits. During the breast examination, escorted by nursing Jarrod Soriano). Absent: respiratory distress - Cardiovascular Cardiovascular Exam: Present: regular rate, normal rhythm, normal heart sounds. Absent: systolic murmur, diastolic murmur, rubs, gallop - GI/Abdominal GI/Abdominal exam: Present: soft, normal bowel sounds. Absent: distended, tenderness, guarding, rebound, rigid, pulsatile mass - Extremities Exam Extremities exam: Present: normal inspection, full ROM, normal capillary refill. Absent: pedal edema, joint swelling, calf tenderness - Back Exam Back exam: Present: normal inspection, full ROM. Absent: tenderness, CVA tenderness (R), paraspinal tenderness, vertebral tenderness - Neurological Exam Neurological exam: Present: alert, other (Extraocular movements intact. Tongue midline. No facial droop. Facial sensation intact to light touch in the V1, V2 , V3 distribution bilaterally. 5 and 5 strength in 4 extremities.. Sensation is intact to light touch in 4 extremities.). Absent: motor sensory deficit - Psychiatric Psychiatric exam: Present: normal affect, normal mood - Skin Skin exam: Present: warm, dry, intact, normal color. Absent: rash ED Course Vital Signs 03/06/0808/31/17 08/31/17 16:32 18:20 18:30 Temperature 97.7 F Pulse Rate 60 59 L Respiratory 20 17 Rate Blood Pressure 174/64 O2 Sat by Pulse 94 97 95 Oximetry 08/31/17 08/31/17 08/31/17 18:40 18:50 19:00 Temperature Pulse Rate 58 L 58 L 59 L Respiratory 16 18 14 Rate Blood Pressure 175/61 169/62 O2 Sat by Pulse 95 94 95 Oximetry 08/31/17 08/31/17 08/31/17 19:10 19:20 19:30 Temperature Pulse Rate 60 59 L 56 L Respiratory 16 15 16 Rate Blood Pressure 179/61 178/63 181/58 O2 Sat by Pulse 88 99 99 Oximetry 08/31/17 08/31/17 08/31/17 19:40 19:50 20:00 Temperature Pulse Rate 55 L 55 L 54 L Respiratory 10 L 10 L 17 Rate Blood Pressure 181/58 161/46 161/46 O2 Sat by Pulse 99 98 99 Oximetry 08/31/17 08/31/17 08/31/17 20:10 21:14 21:20 Temperature Pulse Rate 51 L 57 L Respiratory 14 12 Rate Blood Pressure 170/54 170/54 170/54 O2 Sat by Pulse 98 99 98 Oximetry 08/31/17 08/31/17 08/31/17 21:30 21:45 21:50 Temperature Pulse Rate 50 L 55 L 52 L Respiratory 14 15 20 Rate Blood Pressure 170/54 170/54 170/54 O2 Sat by Pulse 95 99 96 Oximetry 08/31/17 08/31/17 08/31/17 22:00 22:10 22:20 Temperature Pulse Rate 54 L 51 L 54 L Respiratory 18 11 L 14 Rate Blood Pressure 141/53 141/53 146/40 O2 Sat by Pulse 93 92 92 Oximetry 08/31/17 08/31/17 08/31/17 22:30 22:40 22:50 Temperature Pulse Rate 53 L 56 L 53 L Respiratory 13 19 14 Rate Blood Pressure 147/52 147/52 145/48 O2 Sat by Pulse 93 92 92 Oximetry 08/31/17 08/31/17 08/31/17 22:59 23:00 23:08 Temperature 97.2 F L Pulse Rate 55 L Respiratory 16 13 Rate Blood Pressure 129/49 O2 Sat by Pulse 95 94 Oximetry - Reevaluation(s) Reevaluation #1: 08/31/17 18:57 Differential diagnosis, including but not limited to: Acute coronary syndrome, pneumonia, costochondritis, pulmonary embolus Assessment and plan: 87-year-old female, severely demented, has a private psychological assistant, recent echocardiogram demonstrated an ejection fraction of 55%, patient taking aspirin, has chronic renal insufficiency, as per discussion with her daughter, is DO NOT RESUSCITATE, DO NOT INTUBATE. Patient's daughter is a registered nurse. She is not interested in invasive cardiac risk stratification such as catheterization. She further endorses that the patient has follow-up with her private psychological assistant this . Given that patient is such a poor historian, a d-dimer is not on any utility at this time, as the patient cannot give me a history in order to provide a pretest probability. 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 This is the most likely etiology of the patient's syncope. However, given chest pain today, and history of syncope a few days ago, we will empirically obtain nuclear medicine study to risk stratify for pulmonary embolus. I did have an extensive discussion with the patient's daughter, regarding risks of anticoagulation if patient is indeed diagnosed with a pulmonary embolus, and informed her that the patient would have a relative contraindication to anticoagulation given her advanced age and fall risk. Patient started also currently not certain if she wants to pursue an IVC filter if a pulmonary embolus is indeed identified. Reevaluation #2: 08/31/17 21:34 Repeat EKG unremarkable and unchanged, demonstrates persistent right bundle- branch block. Nuclear medicine studies pending, repeat troponin is pending, x- ray of the chest is pending. Reevaluation #3: 08/31/17 22:31 Nuclear medicine study is low probability for pulmonary embolus. Patient has no pain at this time. Repeat troponin is pending. Family reports she appears to be improved. Reevaluation #4: 08/31/17 23:31 Troponin negative 3. Patient resting comfortably in no distress. Patient started once take the patient home. They will follow up with outpatient cardiology later on this week as scheduled. ED Medical Decision Making - Lab Data Result diagrams: 08/31/17 16:55 08/31/17 16:55 Vital Signs 03/12/18 16:32 Temperature 97.7 F Pulse Rate 60 Respiratory 20 Rate Blood Pressure 174/64 O2 Sat by Pulse 94 Oximetry Labs 08/31/17 08/31/17 16:55 16:55 WBC 8.3 RBC 4.18 Hgb 12.6 Hct 37.1 MCV 89 MCH 30 MCHC 34 RDW 13.8 Plt Count 253 Lymph % (Auto) 20.4 [place] % (Auto) 9.2 H Eos % (Auto) 3.0 Baso % (Auto) 0.4 Lymph # 1.7 [place] # 0.8 Eos # 0.3 Baso # 0.0 Seg Neutrophils % 67.0 Seg Neutrophils # 5.6 Sodium 139 Potassium 4.3 Chloride 101.7 Carbon Dioxide 22 Anion Gap 20 BUN 23 H Creatinine 1.5 H Estimated GFR 33 BUN/Creatinine Ratio 15 Glucose 102 H Calcium 8.8 Troponin T < 0.010 - EKG Data -: EKG Interpreted by Me EKG shows normal: sinus rhythm - EKG Data Interpretation: unchanged when compared t 08/31/17 19:04 Normal sinus, 60 bpm, normal axis, right bundle branch block, not consistent with a STEMI, unchanged from prior EKG 08/28/2017. - Radiology Data Radiology results: report reviewed, image reviewed interpreted by me: X-ray of the chest, interpreted by me: No acute disease YING DOUGHERTY Female : 1930 [facility]# [id number] 08/29/17 11:37 - Radiology Dept. [facility]: [id number] : 1930 Patient Age: 87 VASCULAR LAB.PRELIMINARY REPORT.CAROTID DUPLEX DONE.BOTH ICA'S HAVE <50% STENOSIS BY DOPPLER VELOCITIES.RT.ECA HAS 80-99% STENOSIS BY DOPPLER VELOCITIES ( PSV/EDV= 514/0 ). ANTEGRADE VERTEBRAL ARTERY FLOW BILATERALLY.PAUL( RN) INFORMED AT 1136. Critical care attestation.: If time is entered above; I have spent that time in minutes in the direct care of this critically ill patient, excluding procedure time. ED Disposition Clinical Impression: Chest wall pain Disposition: DC-01 TO HOME OR SELFCARE Is pt being admited?: No Does the pt Need Aspirin: No Condition: Stable Instructions: Chest Pain (ED), Costochondritis (ED) Additional Instructions: Continue current outpatient medications. Follow up with her psychological assistant later on this week as scheduled. Follow up with your primary care doctor within the next 2 weeks. Return to the ER right away with new pain, worsened pain, migration of pain, fevers, chills, lethargy, irritability, projectile vomiting, change in mental status, confusion, inability to tolerate liquid feeds. Referrals: PRIMARY CARE, [Primary Care Provider] - 3-5 Days SORAIDA ALVAREZ MD [Staff Physician] - 3-5 Days
[2017-08-31 19:02] LABS: INR 0.9 (0.87-1.13)
[2017-08-31] MEDS ORDERED: ASPIRIN ONE (19:03)
--- NOTE | 2017-08-31 22:16 | Nuclear Medicine Report ---
FINAL REPORT PROCEDURE: NM LUNG SCAN PERF/VENT TECHNIQUE: Five mCi Tc-99m MAA was injected IV for pulmonary perfusion imaging in multiple projections. Fifteen mCi xenon 133 was inhaled for pulmonary ventilation imaging in multiple projections. Injection site: RIGHT antecubital fossa. CPT 28404 REGULATORY GUIDELINES: The patient was released based upon guidelines established in [place] State Regulations for Protection Against Radiation, Chapter 1199-07-29-35, Release of Individuals Containing Radioactive Drugs or Implants. HISTORY: cp syncope COMPARISON: Chest x-ray 09/01/2017 FINDINGS: Perfusion: No defects . Ventilation: No defects . IMPRESSION: According to modified Piper criteria: No evidence of pulmonary embolism
[2017-08-31 23:07] VITALS: BP 129/49
--- NOTE | 2017-08-31 23:11 | XRay Report ---
FINAL REPORT PROCEDURE: XR CHEST ROUTINE 2V TECHNIQUE: PA and lateral chest radiographs were obtained. CPT 18982 HISTORY: left chest pain COMPARISON: No prior studies are available for comparison. FINDINGS: Limited study due to suboptimal positioning. Heart: There is mild cardiomegaly. Mediastinum/Vessels: Normal. Lungs/Pleural space: Lungs are hyperinflated. There are no confluent infiltrates or mass lesions. Posterior costophrenic angles are not well visualized due to patient positioning. Any underlying small bilateral pleural effusions cannot be excluded... Bony thorax: No acute osseous abnormality. Other: IMPRESSION: COPD No acute pulmonary process Mild bilateral pleural effusions cannot be excluded..
== END 2017-09-01 00:11 | disposition home or self-care (01) ==
LOC: ED 16:15
DX: R07.89 Other chest pain (principal); I10 Essential (primary) hypertension; E78.00 Pure hypercholesterolemia, unspecified; Z98.890 Other specified postprocedural states
CPT/HCPCS: 36415; 71046; 78582; 80048; 82550; 84484; 85025; 85379; 85610; 93005; 93010; 96374; 99284; A9540; A9558; J3010; J7050